=== PATIENT | female | born 1940 | race Caucasian/White ===

== ENCOUNTER 2020-07-08 11:05 | Outpatient (CLI) | payer MEDICARE | END 2020-07-08 23:59 | disposition home or self-care (01) | LOC: CFH 11:05 | PROVIDERS: ATTEND Family Medicine | DX: M81.0 Age-related osteoporosis without current pathological fracture (principal) | CPT/HCPCS: 77080 ==

== ENCOUNTER 2020-12-12 00:32 | Emergency (ER) | payer MEDICARE ==
[~2020-12-12] VITALS: Ht 167.6 cm; Wt 58.4 kg
[2020-12-12 01:05] LABS: BASOPHILS % (AUTO) 1 % (0-1); EOSINOPHILS % (AUTO) 2 % (1-7); LYMPHOCYTES % (AUTO) 30 % (22-44); MEAN CORPUSCULAR HEMOGLOBIN 33.4 pg (27.0-34.8); MEAN CORPUSCULAR HGB CONC 33.5 g/dL (32.4-35.8); MEAN PLATELET VOLUME 9.9 fL (7.4-10.4); MONOCYTES % (AUTO) 11 % (2-9); NEUTROPHILS % (AUTO) 56 % (42-75); PLATELET COUNT 196 x10^3/uL (130-400); RED BLOOD COUNT 4.31 x10^6/uL (3.82-5.3); RED CELL DISTRIBUTION WIDTH 14.9 % (9.6-15.2)
[2020-12-12 01:12] LABS: ANION GAP 6 mmol/L (5-15); CALCIUM 9.7 mg/dL (8.5-10.1); CHLORIDE 106 mmol/L (98-107); CREATININE 0.73 mg/dL (0.55-1.02)
[2020-12-12 01:16] LABS: TROPONIN I < 0.015 ng/mL (0.000-0.045)
[2020-12-12 04:05] VITALS: BP 165/81
--- NOTE | 2020-12-12 04:21 | NUR ---
Patient given discharge instructions and they have confirmed that they understand the instructions. Patient ambulatory with steady gait. NAD, all questions answered appropriately, denies additional needs at this time. No personal belongings left in room after discharge.
== END 2020-12-12 04:27 | disposition home or self-care (01) ==
LOC: ED 04:00
DX: R07.89 Other chest pain (principal); J20.9 Acute bronchitis, unspecified; B34.9 Viral infection, unspecified; Z20.822 Contact with and (suspected) exposure to COVID-19; I48.91 Unspecified atrial fibrillation; M06.9 Rheumatoid arthritis, unspecified
CPT/HCPCS: 36415; 71045; 80048; 82040; 84484; 85025; 93005; 99285; U0003; U0005